=== PATIENT | male | born 1950 | race Caucasian/White ===

== ENCOUNTER 2023-01-31 12:10 | Day surgery (SDC) | payer MEDICARE, OTHER ==
[2023-01-31] MEDS ORDERED: LIDOCAINE HCL 2% 100 MG/5 ML IJ ONE (12:11)
[2023-01-31] MEDS ORDERED: Depo-Medrol 40 MG/ML IM ONE (12:11)
[2023-01-31] MEDS ORDERED: DIPRIVAN 200 MG/20 ML IV ONE (14:06)
[2023-01-31] MEDS ORDERED: Lactated Ringers 1,000 ML IV ONE (14:30)
--- NOTE | 2023-01-31 14:45 | XRAY ---
Indication: Bilateral L4-S1 MBB. Intraoperative fluoroscopy provided for 34 seconds. 3 digital spot image submitted for interpretation demonstrates posterior needle tips projecting over the expected left and right L4-S1 nerve roots. Correlate with intraoperative findings/report. Incidental bilateral L3-L4 posterior fusion hardware.
--- NOTE | 2023-01-31 14:49 | XRAY ---
34 seconds of fluoroscopy was used in surgery for a bilateral L4-S1 MBB.
== END 2023-01-31 14:40 | disposition home or self-care (01) ==
LOC: SDC-PAIN 12:10
PROVIDERS: ATTEND Psychiatry & Neurology Pain Medicine
DX: M47.816 Spondylosis without myelopathy or radiculopathy, lumbar region (principal); Z79.899 Other long term (current) drug therapy
CPT/HCPCS: 64493; 64494; 72020; 77002; J1030; J2704

== ENCOUNTER 2023-03-28 09:19 | Day surgery (SDC) | payer MEDICARE, OTHER ==
[2023-03-28] MEDS ORDERED: Depo-Medrol 40 MG/ML IM ONE (09:20)
[2023-03-28] MEDS ORDERED: BUPIVACAINE 0.5% VIAL IJ ONE (09:20)
[2023-03-28] MEDS ORDERED: DIPRIVAN 200 MG/20 ML IV ONE (10:27)
--- NOTE | 2023-03-28 13:48 | XRAY ---
Indication: Bilateral L4-S1 MBB. Intraoperative fluoroscopy provided for 17 seconds. Single digital spot image submitted for interpretation demonstrates posterior needle tips projecting over the expected left and right L4-S1 nerve roots. Correlate with intraoperative findings/report. Incidental bilateral L3-L4 posterior fusion hardware.
[2023-03-28] MEDS ORDERED: Lactated Ringers 1,000 ML IV ONE (14:11)
--- NOTE | 2023-03-28 15:57 | XRAY ---
17 seconds of fluoroscopy was used in surgery for a bilateral L4-S1 MBB.
== END 2023-03-28 10:37 | disposition home or self-care (01) ==
LOC: SDC-PAIN 09:19
PROVIDERS: ATTEND Psychiatry & Neurology Pain Medicine
DX: M47.816 Spondylosis without myelopathy or radiculopathy, lumbar region (principal); Z79.899 Other long term (current) drug therapy
CPT/HCPCS: 64493; 64494; 72020; 77002; J1030; J2704

== ENCOUNTER 2023-06-06 10:25 | Day surgery (SDC) | payer MEDICARE, OTHER ==
[2023-06-06] MEDS ORDERED: Decadron 4 MG INJ IV ONE (10:26)
[2023-06-06] MEDS ORDERED: LIDOCAINE HCL 2% 100 MG/5 ML IJ ONE (10:26)
[2023-06-06] MEDS ORDERED: DIPRIVAN 200 MG/20 ML IV ONE (12:20)
[2023-06-06] MEDS ORDERED: Lactated Ringers 1,000 ML IV ONE (12:47)
--- NOTE | 2023-06-06 14:04 | XRAY ---
Indication: Right C2-C5 MBB. Intraoperative fluoroscopy provided for 17 seconds. 2 digital spot image submitted for interpretation demonstrates posterior needle tips projecting over the expected right C2-C5 nerve roots. Correlate with intraoperative findings/report.
--- NOTE | 2023-06-06 14:06 | XRAY ---
17 seconds of fluoroscopy was used in surgery for a right C2-C5 MBB.
== END 2023-06-06 12:52 | disposition home or self-care (01) ==
LOC: SDC-PAIN 10:25
PROVIDERS: ATTEND Psychiatry & Neurology Pain Medicine
DX: M47.812 Spondylosis without myelopathy or radiculopathy, cervical region (principal); Z79.899 Other long term (current) drug therapy
CPT/HCPCS: 64490; 64491; 64492; 72040; 77002; J1100; J2704

== ENCOUNTER 2023-09-05 11:43 | Day surgery (SDC) | payer MEDICARE, OTHER ==
[2023-09-05] MEDS ORDERED: LIDOCAINE HCL 1% 50 MG/5 ML VL PF IJ ONE (11:44)
[2023-09-05] MEDS ORDERED: BUPIVACAINE 0.5% VIAL IJ ONE (11:44)
[2023-09-05] MEDS ORDERED: Depo-Medrol 40 MG/ML IM ONE (13:48)
[2023-09-05] MEDS ORDERED: DIPRIVAN 200 MG/20 ML IV ONE (14:15)
[2023-09-05] MEDS ORDERED: Lactated Ringers 1,000 ML IV ONE (14:54)
--- NOTE | 2023-09-05 15:13 | XRAY ---
Indication: Right L4-S1 RFA. Intraoperative fluoroscopy provided for 29 seconds. 4 digital spot images submitted for interpretation demonstrates posterior needle tips projecting over the expected right L4-S1 nerve roots. Correlate with intraoperative findings/report. Incidental bilateral L3-L4 fusion hardware.
--- NOTE | 2023-09-05 16:47 | XRAY ---
29 seconds of fluoroscopy was used in surgery for a right L4-S1 RFA.
== END 2023-09-05 14:50 | disposition home or self-care (01) ==
LOC: SDC-PAIN 11:43
PROVIDERS: ATTEND Psychiatry & Neurology Pain Medicine
DX: M47.816 Spondylosis without myelopathy or radiculopathy, lumbar region (principal)
CPT/HCPCS: 64635; 64636; 72100; 77002; 99100; J1030; J2001; J2704

== ENCOUNTER 2023-09-19 11:51 | Day surgery (SDC) | payer MEDICARE, OTHER ==
[2023-09-19] MEDS ORDERED: BUPIVACAINE 0.5% VIAL IJ ONE (11:52)
[2023-09-19] MEDS ORDERED: Depo-Medrol 40 MG/ML IM ONE (11:52)
[2023-09-19] MEDS ORDERED: LIDOCAINE HCL 1% 50 MG/5 ML VL PF IJ ONE (11:52)
[2023-09-19] MEDS ORDERED: DIPRIVAN 200 MG/20 ML IV ONE (14:54)
[2023-09-19] MEDS ORDERED: Lactated Ringers 1,000 ML IV ONE (15:39)
--- NOTE | 2023-09-19 16:57 | XRAY ---
Indication: Left L4-S1 RFA. Intraoperative fluoroscopy provided for 24 seconds. 4 digital spot images submitted for interpretation demonstrates posterior needle tips projecting over the expected left L4-S1 nerve roots. Correlate with intraoperative findings/report. Incidental bilateral L3-L4 fusion hardware.
--- NOTE | 2023-09-19 17:05 | XRAY ---
24 seconds of fluoroscopy was used in surgery for a left L4-S1 RFA.
== END 2023-09-19 15:30 | disposition home or self-care (01) ==
LOC: SDC-PAIN 11:51
PROVIDERS: ATTEND Psychiatry & Neurology Pain Medicine
DX: M47.816 Spondylosis without myelopathy or radiculopathy, lumbar region (principal)
CPT/HCPCS: 64635; 64636; 72100; 77002; 99100; J1030; J2001; J2704

== ENCOUNTER 2023-10-10 09:42 | Day surgery (SDC) | payer MEDICARE, OTHER ==
[2023-10-10] MEDS ORDERED: Decadron 4 MG INJ IV ONE (09:43)
[2023-10-10] MEDS ORDERED: BUPIVACAINE 0.5% VIAL IJ ONE (09:43)
[2023-10-10] MEDS ORDERED: DIPRIVAN 200 MG/20 ML IV ONE (11:29)
[2023-10-10] MEDS ORDERED: Lactated Ringers 1,000 ML IV ONE (14:59)
--- NOTE | 2023-10-10 20:49 | XRAY ---
Indication: Right C2-C5 MBB. Intraoperative fluoroscopy provided for 19 seconds. 2 digital spot image submitted for interpretation demonstrates posterior needle tip projecting over the expected right C2-C5 nerve roots. Correlate with intraoperative findings/report.
--- NOTE | 2023-10-10 21:43 | XRAY ---
19 seconds of fluoroscopy was used in surgery for a right C2-C5 MBB.
== END 2023-10-10 11:53 | disposition home or self-care (01) ==
LOC: SDC-PAIN 09:42
PROVIDERS: ATTEND Psychiatry & Neurology Pain Medicine
DX: M47.812 Spondylosis without myelopathy or radiculopathy, cervical region (principal)
CPT/HCPCS: 64490; 64491; 64492; 72040; 77002; J1100; J2704

== ENCOUNTER 2023-12-19 09:54 | Day surgery (SDC) | payer MEDICARE, OTHER ==
[2023-12-19] MEDS ORDERED: BUPIVACAINE 0.5% VIAL IJ ONE (09:55)
[2023-12-19] MEDS ORDERED: Decadron 4 MG INJ IV ONE (09:55)
[2023-12-19] MEDS ORDERED: XYLOCAINE-MPF 1% 5ML SDV IJ ONE (09:55)
[2023-12-19] MEDS ORDERED: DIPRIVAN 200 MG/20 ML IV ONE (11:57)
--- NOTE | 2023-12-19 13:08 | XRAY ---
Indication: Right C2-C5 RFA. Intraoperative fluoroscopy provided for 29 seconds. 3 digital spot image submitted for interpretation demonstrates posterior needle tips projecting over the expected right C2-C5 nerve roots. Correlate with intraoperative findings/report.
[2023-12-19] MEDS ORDERED: Lactated Ringers 1,000 ML IV ONE (13:39)
--- NOTE | 2023-12-19 13:46 | XRAY ---
29 seconds of fluoroscopy was used in surgery for a right C2-C5 RFA.
== END 2023-12-19 12:30 | disposition home or self-care (01) ==
LOC: SDC-PAIN 09:54
PROVIDERS: ATTEND Psychiatry & Neurology Pain Medicine
DX: M47.812 Spondylosis without myelopathy or radiculopathy, cervical region (principal)
CPT/HCPCS: 64635; 64636; 72040; 77002; 99100; J1100; J2704

== ENCOUNTER 2024-04-16 13:11 | Day surgery (SDC) | payer MEDICARE, OTHER ==
[2024-04-16] MEDS ORDERED: Depo-Medrol 40 MG/ML IM ONE (13:12)
[2024-04-16] MEDS ORDERED: BUPIVACAINE 0.5% VIAL IJ ONE (13:12)
[2024-04-16] MEDS ORDERED: DIPRIVAN 200 MG/20 ML IV ONE (14:52)
[2024-04-16] MEDS ORDERED: Lactated Ringers 1,000 ML IV ONE (15:31)
--- NOTE | 2024-04-16 16:03 | XRAY ---
Indication: Right SI joint injection Intraoperative fluoroscopy provided for 8 seconds. Single digital spot images submitted for interpretation demonstrates posterior needle tip projecting over the right SI joint. Small amount of contrast injected for needle tip placement. Correlate with intraoperative findings/report.
--- NOTE | 2024-04-17 07:18 | XRAY ---
8 seconds of fluoroscopy used in surgery for a right SI joint injection.
== END 2024-04-16 15:18 | disposition home or self-care (01) ==
LOC: SDC-PAIN 13:11
PROVIDERS: ATTEND Psychiatry & Neurology Pain Medicine
DX: M46.1 Sacroiliitis, not elsewhere classified (principal)
CPT/HCPCS: 01992; 27096; 72170; 77002; 99100; G0260; J1010; J2704; Q9966